=== PATIENT | male | born 1955 | race Two or more races ===

== ENCOUNTER 2019-04-30 08:00 | Outpatient (AMBR) | payer MEDICAID, SELFPAY ==
--- NOTE | 2019-04-13 08:14 | PT.OIERPT ---
PT OP Initial Eval Patient Information Visit Reasons: pain in left knee Medical Diagnosis: M25.562 G89.29 Treatment Dx #1: L knee pain Start of Care: 04/13/19 Date of Onset: 02/22/19 Initial Assessment Subjective Pt is 63 yr old mozambican speaking male s/p L knee A/S meniscus repair presents to therapy about 7 weeks post op. He is walking about 1/2 a mile with pain at home and is not working. He had been working in the carrion prior to sx. PMH: DM, HTN, OA, high cholesterol Imaging: with provider Pt goal: to walk with less pain longer distances Objective L knee AROM: Flexion: 110 deg Extension: -5 deg SLR: 45 deg with slight extensor lag Strength: L quads 4-/5 limited by patella compression pain, hamstrings 4/5 Antalgic gait pattern with slightly decreased stance time on L Assessment Pt presentation consistent with post op L knee A/S with decreased ROM, strength and WB tolerance. Pt ambulates with decreased WB on L. Pt has slight pain into knee flexion and lacks a few degrees of knee extension. Pt can SLR slowly and has slight extensor lag. Pt has good rehab potential with attainable functional improvement. Eval followed by HEP with materials. Short Term and Correction Goals 1. Ind with HEP 2. Improved knee flexion ROM to 120 deg 3. Improved quad and hamstring strength to 4+/5 4. Improved ambulatory tolerance to community distances with symmetrical gait pattern. Treatment Plan 1. Manual therapy 2. Therex 3. Modalities as indicated, moist heat, ice, TENS Frequency and Duration 2x a week for 6 weeks Certification Dates: 04/13/19 to 07/11/19 Office Procedures PT Procedures PT Date of Service: 04/13/19 OP PT Eval Mod Complex 30 minutes: Yes
--- NOTE | 2019-04-16 10:17 | PT.ODAYNRPT ---
PT Outpatient Daily Note Date of Service: April 16, 2019 OP Daily Note Visit Reasons: pain in left knee Outpatient Physical Therapy Treatment Date: 04/16/19 Subjective: Walking at home without significant pain Objective: SEe F/S for therex Assessment: Pt able to lunge and squat on total gym with low tissue irritability Plan: Continue per POC Length of Time (minutes) of Treatment: 30 Minutes Office Procedures PT Procedures PT Date of Service: 04/13/19 OP PT Eval Mod Complex 30 minutes: Yes PT Procedures PT Date of Service: 04/16/19 Therapeutic Exercise 30 minutes: Yes
--- NOTE | 2019-04-21 11:44 | PT.ODAYNRPT ---
PT Outpatient Daily Note Date of Service: April 21, 2019 OP Daily Note Visit Reasons: pain in left knee Outpatient Physical Therapy Treatment Date: 04/21/19 Subjective: Walking at home without significant pain, overall better Objective: See F/S for therex Assessment: Pt able to lunge and squat on total gym with low tissue irritability . Good therex rep tolerance with low tissue irritability Plan: Continue per POC Length of Time (minutes) of Treatment: 30 Minutes Office Procedures PT Procedures PT Date of Service: 04/13/19 OP PT Eval Mod Complex 30 minutes: Yes PT Procedures PT Date of Service: 04/16/19 Therapeutic Exercise 30 minutes: Yes PT Procedures PT Date of Service: 04/21/19 Therapeutic Exercise 30 minutes: Yes
--- NOTE | 2019-04-23 10:35 | PTNOTE_ITS ---
PT Outpatient Daily Note Date of Service: April 23, 2019 OP Daily Note Visit Reasons: pain in left knee Outpatient Physical Therapy Treatment Date: 04/23/19 Subjective: pt doing well today with no complaints. Objective: see flow sjeet. Assessment: added resistance band with some exercises in which he tolerated well . he had no difficulty with pushing against resistance. no rest breaks in between. pt ascends and descends the stair case with good strength and ROM of the knee and equal WB on BLE. he had difficulty with fwd lunges on the stair case so he needed a few cues to not lift his heel and keep back upright with no medial collapse of the knee. pt needs a little more practice with lunges to get the form better. Plan: continue POC per PT. Length of Time (minutes) of Treatment: 30 Minutes Office Procedures PT Procedures PT Date of Service: 04/13/19 OP PT Eval Mod Complex 30 minutes: Yes PT Procedures PT Date of Service: 04/16/19 Therapeutic Exercise 30 minutes: Yes PT Procedures PT Date of Service: 04/23/19 Therapeutic Exercise 30 minutes: Yes PT Procedures PT Date of Service: 04/21/19 Therapeutic Exercise 30 minutes: Yes
--- NOTE | 2019-04-28 18:45 | PT.ODAYNRPT ---
PT Outpatient Daily Note Date of Service: April 28, 2019 OP Daily Note Visit Reasons: pain in left knee Outpatient Physical Therapy Treatment Date: 04/28/19 Subjective: Walking at home without significant pain, overall better. The incision scar hurts sometimes and he points to it. Objective: See F/S for therex MT: STM incision scars of L knee x10' Assessment: Pt able to lunge and squat on total gym with low tissue irritability . Good therex rep tolerance with low tissue irritability Plan: Continue per POC Length of Time (minutes) of Treatment: 30 Minutes Office Procedures PT Procedures PT Date of Service: 04/13/19 OP PT Eval Mod Complex 30 minutes: Yes PT Procedures PT Date of Service: 04/16/19 Therapeutic Exercise 30 minutes: Yes PT Procedures PT Date of Service: 04/23/19 Therapeutic Exercise 30 minutes: Yes PT Procedures PT Date of Service: 04/21/19 Therapeutic Exercise 30 minutes: Yes PT Procedures PT Date of Service: 04/28/19 Therapeutic Exercise 15 minutes: Yes Manual Aircraft Dispatcher 15 minutes: Yes
--- NOTE | 2019-04-30 08:55 | PTNOTE_ITS ---
PT Outpatient Daily Note Date of Service: April 30, 2019 OP Daily Note Visit Reasons: pain in left knee Outpatient Physical Therapy Treatment Date: 04/30/19 Subjective: pt states he has min pain and knee getting better. Objective: see flow sheet. Assessment: pt tolerated the resistance on the bike with no complaints. he was able to get on the TG but had difficulty getting off. his ROM on the L knee is good as he was able to push up and extend the knee.noted pt has good quad contraction during his SLR with good controlled stability. Plan: continue POC per PT. Length of Time (minutes) of Treatment: 30 Minutes Office Procedures PT Procedures PT Date of Service: 04/13/19 OP PT Eval Mod Complex 30 minutes: Yes PT Procedures PT Date of Service: 04/16/19 Therapeutic Exercise 30 minutes: Yes PT Procedures PT Date of Service: 04/23/19 Therapeutic Exercise 30 minutes: Yes PT Procedures PT Date of Service: 04/30/19 Therapeutic Exercise 30 minutes: Yes PT Procedures PT Date of Service: 04/21/19 Therapeutic Exercise 30 minutes: Yes PT Procedures PT Date of Service: 04/28/19 Therapeutic Exercise 15 minutes: Yes Manual Card Writer Hand 15 minutes: Yes
== END 2019-05-01 23:59 | disposition home or self-care (01) ==
PROVIDERS: PCP Family Medicine; Referring Provider Family Medicine; Visit Provider Orthopaedic Surgery
DX: M25.562 Pain in left knee (principal); G89.29 Other chronic pain; E11.9 Type 2 diabetes mellitus without complications; I10 Essential (primary) hypertension
CPT/HCPCS: 97110; 97140; 97162

== ENCOUNTER 2024-08-27 07:45 | Day surgery (SDC) | payer MEDICARE, SELFPAY ==
--- NOTE | 2024-08-25 07:00 | EKG_ITS ---
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
[2024-08-25 08:54] VITALS: BMI 40.9
[2024-08-25 10:23] LABS: Collection Type, Urine Clean Catch
[2024-08-25 10:54] LABS: Basophils # (Auto) 0.1 Thou/mm3 (0.0-0.2); Basophils % (Auto) 1 % (0-2.5); Eosinophils # (Auto) 0.2 Thou/mm3 (0.0-0.5); Eosinophils % (Auto) 3 % (0-10); Hematocrit 38.6 % (41.0-53.0); Hemoglobin 13.6 g/dL (13.5-16.0); Immature Granulocytes % (Auto) 0 % (0-0); Immature Granulocytes Auto 0.02 Thou/mm3 (0.00-0.00); Lymphocytes # (Auto) 1.7 Thou/mm3 (1.0-4.8); Lymphocytes % (Auto) 23 % (10-50); Mean Corpuscular HGB Conc 35.2 g/dl (31.0-37.0); Mean Corpuscular Hemoglobin 31.8 pg (25.0-35.0); Mean Corpuscular Volume 90 fL (80-100); Monocytes # (Auto) 0.7 Thou/mm3 (0.0-0.8); Monocytes % (Auto) 9 % (0-12); Neutrophils # (Auto) 4.7 Thou/mm3 (1.8-7.7); Neutrophils % (Auto) 63 % (37-80); Nucleated Red Blood Cell % 0 /100 WBC (0); Platelet Count 216 Thou/mm3 (140-440); RDW Standard Deviation 41.8 fL (35.1-43.9); Red Blood Count 4.28 Miln/mm3 (4.50-5.90); White Blood Count 7.5 Thou/mm3 (3.8-10.6)
[2024-08-25 10:57] LABS: Bilirubin,Urine Negative (Negative); Blood,Urine Negative (Negative); Clarity,Urine Clear (Clear/Hazy); Color,Urine Colorless (Lt Yel-Yel); Glucose, Urine Negative (Negative); Ketones,Urine Negative (Negative); Leukocyte Esterase,Urine Negative (Negative); Nitrite,Urine Negative (Negative); Protein,Urine Negative (Neg - Trace); RBC,Urine 1 /hpf (0-3); Specific Gravity,Urine 1.011 (1.001-1.035); Squamous Epithelial Cell,Urine 1 /hpf (0-5); Urobilinogen,Urine Negative mg/dL (0.0-1.0); WBC,Urine 1 /hpf (0-5)
[2024-08-25 11:07] LABS: Alanine Aminotransferase 16 U/L (10-49); Albumin, Serum 4.4 gm/dL (3.4-4.8); Albumin/Globulin Ratio 1.9 (1.2-2.2); Alkaline Phosphatase 66 U/L (46-116); Anion Gap 7 (7-16); Aspartate Amino Transferase 18 U/L (0-34); BUN/Creatinine Ratio 12 Ratio (12-20); Bilirubin,Total 0.9 mg/dL (0.3-1.2); Blood Urea Nitrogen 13 mg/dL (9-23); Calcium 9.4 mg/dL (8.3-10.6); Calcium (Corrected) 9.4 mg/dL (8.5-10.1); Carbon Dioxide 27.9 mMol/L (20.0-31.0); Chloride 104 mMol/L (98-107); Creatinine (Component) 1.1 mg/dL (0.6-1.3); Estimated Creatinine Clearance 69.6 mL/min (>60); Globulin 2.3 gm/dL (2.3-3.5); Glucose 125 mg/dL (74-106); Osmolality,Calculated 278 (275-295); Potassium 4.3 mMol/L (3.4-5.1); Sodium 139 mMol/L (136-145); Total Protein 6.7 gm/dL (5.7-8.2); eGFR > 60 See Note
--- NOTE | 2024-08-26 13:47 | ESHP_ITS ---
RE: PIPO MCNALLY : 1955 DATE OF ADMISSION: 08/26/2024 HISTORY OF PRESENT ILLNESS: A 69-year-old gentleman who was referred to me with a history of left distal ureteral possible mass. The patient is scheduled to have cystoscopy, left retrograde pyelogram, left ureteroscopy, and possible biopsy of the left distal ureteral mass or tumor, possible left ureteral stent. Planned procedure risks and complications have been discussed with the patient. The patient understood them and agreed to proceed. The patient is urinating well. There is no history of any gross hematuria. PAST MEDICAL HISTORY: He has a history of hypertension and history of diabetes mellitus. PAST SURGICAL HISTORY: The patient had left shoulder operation, left knee operation, and eye operations. SOCIAL HISTORY: The patient has three children. ALLERGIES: NONE KNOWN. HOME MEDICATIONS: He takes, 1. Metformin. 2. Statin medication. 3. Coreg. 4. Allopurinol. 5. Losartan. 6. Januvia. 7. Hydrochlorothiazide. LABORATORY DATA: The patient's PSA is 0.54. IMAGING: The patient had a CT scan of the abdomen and pelvis done somewhere else, which revealed focal left mass in the ureter and they recommend ureteroscopy. The mass is 6.3 mm in the left distal ureter. IMPRESSION: Left ureteral mass on CT scan. PLAN: Cystoscopy, left retrograde pyelogram, left ureteroscopy, possible biopsy, possible left ureteral stent insertion. Planned procedure, risks and complications have been discussed with the patient. The patient has understood them and agreed to proceed. DT: 11:58:25 TT: 13:45:00 Ref: [id number] - TID: [id number]
[2024-08-27] VITALS (9 sets, daily range): BP systolic 90–156; BP diastolic 51–84; PULSE 47–72; RESP 12–24; TEMP 36.2–36.6; O2SAT 96–100; BMI 40.6
--- NOTE | 2024-08-27 08:39 | SUR.PREOP ---
Patient expressed gratitude for prayer before their procedure.
--- NOTE | 2024-08-27 10:00 | XR_ITS ---
Examination: Retrograde pyelogram left with without KUB Fluoroscopy 6 spot fluoroscopic abdomen films Date and time: August 27, 2024 1140 hours INDICATIONS: Retrograde pyelogram with left ureteral stent placement today, no prior films available for comparison TECHNIQUE AND FINDINGS: 6 spot fluoroscopic abdomen films demonstrating mild dilatation of the left renal collecting system including left ureter Left ureteral stent satisfactory position Fluoroscopy 24 seconds radiation dose 8.75 milligray IMPRESSION: Retrograde pyelogram as above
--- NOTE | 2024-08-27 11:59 | SUR.PHASEI ---
1120: Pt received in [facility] via gurney. Report from Chandni WHITING and Dr. Davies. Pt obtunded. Resp even, unlabored. Pt snoring loudly. Head repositioned. Snoring continues. VS stable. 1140: Pt arousable with eye opening then drifts back to sleep. Resp even, unlabored. Snoring has subsided. VS stable. No c/o pain.
--- NOTE | 2024-08-27 12:37 | ESOP_ITS ---
RE: PIPO MCNALLY : 1955 DATE OF OPERATION: 08/27/2024 PREOPERATIVE DIAGNOSIS: Possible left distal ureteral tumor on CT scan of the abdomen and pelvis. POSTOPERATIVE DIAGNOSIS: right lower ureteral tumor. PROCEDURES PERFORMED: Cystoscopy, left retrograde pyelogram, left ureteroscopy, and insertion of the left ureteral stent. ANESTHESIA: General. INDICATION: The patient is a 69-year-old gentleman who was referred to id showing a CT scan, which was reported to have a left distal ureteral tumor on CT scan. The patient's PSA has been normal at 0.54. In view of the above findings, the patient was referred to id. The patient was now scheduled to have cystoscopy, left retrograde pyelogram, left ureteroscopy, possible biopsy, possible insertion of the left ureteral stent. Planned procedure, risks, and complications have been discussed with the patient. The patient understood them and agreed to proceed. DESCRIPTION OF PROCEDURE: After the patient was brought to the operating table under adequate general anesthesia and dorsal lithotomy position, parts were prepped and draped in the usual fashion. Cystoscopy was then carried out, which revealed that the patient has mild meatal stenosis. The urethra was dilated with metal sounds. A 22-Nigerian cystoscope was then introduced into the bladder. Now the urethra is open. Prostatic urethra revealed a moderate enlargement of prostate. Scope was introduced into the bladder. There are no intramuscular stones or tumors. Ureteral orifice are somewhat narrow. Open-tip ureteral catheter was inserted into the left ureteral orifice and left retrograde pyelogram was obtained, which did not show any definite tumor in the left lower ureter as it was suggested on the CT scan. We decided to do the left ureteroscopy. The patient has a very small ureteral orifice. Extra thin ureteroscope was then introduced into the left ureter. The entire left ureter was inspected. The patient did not have any tumor in the ureter. The left lower ureter, mid ureter, and upper ureters are inspected. There is no tumor in the ureter. The scope was withdrawn. Because the patient has a very small opening of the ureter and with this procedure, we decided to put a ureteral stent. A 5-Nigerian x 26 cm double-J ureteral stent was inserted over the guidewire under C-arm fluoroscopy control so as the proximal loop of the stent is in the left kidney and the distal loop is in the bladder. The procedure was then terminated. The patient tolerated the entire procedure well and left the room in good condition. IMPRESSION: No evidence of left distal ureteral tumor as suggested on CT scan of the abdomen and pelvis. DT: 11:40:27 TT: 12:35:00 Ref: [id number] - TID: [id number]
--- NOTE | 2024-08-27 15:24 | SUR.PHASEII ---
1215: Pt more awake, alert. Resp even, unlabored. VS stable. Denies pain. Sitting up tolerating po fluid with no difficulty swallowing and no n/v. Son at bedside. 1238: Pt fully awake, oriented x3. VS stable. Denies pain. Pt dressed and assisted to restroom. Ambulation steady. Voided pink urine. Pt requested son formula checker for him. Pt and son stated understanding of discharge instructions. Pt also instructed to pickling grader his prescription at [facility]. Pt discharged from [facility] in stable condition.
== END 2024-08-27 12:38 | disposition home or self-care (01) ==
PROVIDERS: Anesthesiology; PCP Family Medicine; Referring Provider Surgery; Visit Provider Surgery
PROC: 0TJB8ZZ Inspection of Bladder, Via Natural or Artificial Opening Endoscopic (ICD-10-PCS; CPT 52000; principal; 2024-08-27 09:45)
PROC: (CPT 52282; 2024-08-27 09:45)
DX: R93.41 Abnormal radiologic findings on diagnostic imaging of renal pelvis, ureter, or bladder (principal); R82.89 Other abnormal findings on cytological and histological examination of urine; Z01.810 Encounter for preprocedural cardiovascular examination
CPT/HCPCS: 52332; 36415; 74420; 80053; 81001; 85025; 87086; 93005; A4217; A4649; C1876; C1894; J0131; J0461; J0694; J1100; J1885; J2250; J2405; J2704; J2795; J3010